=== PATIENT | female | born 1980 | race Caucasian/White ===

== ENCOUNTER 2019-04-13 10:55 | Outpatient (CLI) | payer MEDICAID, SELFPAY ==
--- NOTE | 2019-04-13 10:58 | MM_ITS ---
WS: [id number] BILATERAL DIGITAL SCREENING MAMMOGRAPHY WITH CAD CLINICAL INFORMATION: SCREENING HISTORY: Screening mammogram. No current complaints. COMPARISON: None. TECHNIQUE: Bilateral CC and MLO views. FINDINGS: The breasts are composed of heterogeneous fibroglandular density tissue, which can limit the detectio n of small underlying mass lesions. No suspicious mass, asymmetry, calcifications, or architectural d istortion. No evidence of malignancy. MM/[place] [id number] IMPRESSION: BI-RADS: 2-Benign FOLLOW UP: 1 Year Follow-up Recommend return to annual screening mammography.
== END 2019-04-13 10:56 | disposition home or self-care (01) ==
LOC: RADSHAW 10:55
PROVIDERS: Family Provider Nurse Practitioner Family; PCP Nurse Practitioner Family; Visit Provider Nurse Practitioner Family
DX: Z12.31 Encounter for screening mammogram for malignant neoplasm of breast (principal)
CPT/HCPCS: 77067

== ENCOUNTER → 2020-12-04 16:44 | Outpatient (BNVA) | payer MEDICAID, SELFPAY | PROVIDERS: Family Provider Nurse Practitioner Family; PCP Nurse Practitioner Family; Visit Provider Registered Nurse Neonatal Intensive Care | DX: M79.671 Pain in right foot (principal) | CPT/HCPCS: 73630 ==

== ENCOUNTER 2020-12-05 16:16 | Outpatient (CLI) | payer MEDICAID, SELFPAY ==
--- NOTE | 2020-12-05 | XR_ITS ---
WS: [id number] WRIST RIGHT TECHNIQUE: 3 views of the right wrist CLINICAL INFORMATION: FALL, WRIST PAIN COMPARISON: None. FINDINGS: Normal radiocarpal joint. Scaphoid is normal in appearance. No evidence of radiocarpal dislocation. D istal radius and ulna are normal in appearance. XR/XR wrist RT min 3V* [id number] IMPRESSION: Normal right wrist.
--- NOTE | 2020-12-05 | XR_ITS ---
WS: [id number] TECHNIQUE: 2 views of the right hand CLINICAL INFORMATION: FALL, WRIST PAIN COMPARISON: None. FINDINGS: Normal metacarpals. Normal MCP joint. Metacarpal heads are normal in appearance. Normal PIP and DIP j oints. No evidence of acute fracture or dislocation. Radiocarpal joint: Normal. Carpal bones: Normal. XR/XR hand RT 2V [id number] IMPRESSION: Normal right hand.
== END 2020-12-05 16:17 | disposition home or self-care (01) ==
PROVIDERS: PCP Nurse Practitioner Family; Visit Provider Nurse Practitioner Family
DX: M25.531 Pain in right wrist (principal); W19.XXXA Unspecified fall, initial encounter
CPT/HCPCS: 73110; 73120

== ENCOUNTER → 2020-12-06 14:33 | Outpatient (BNVA) | payer MEDICAID, SELFPAY | PROVIDERS: PCP Nurse Practitioner Family; Referring Provider Registered Nurse Neonatal Intensive Care; Visit Provider Podiatrist Foot & Ankle Surgery | DX: M25.571 Pain in right ankle and joints of right foot (principal) | CPT/HCPCS: 73630 ==

== ENCOUNTER 2020-12-10 13:02 | Outpatient (CLI) | payer MEDICAID, SELFPAY ==
--- NOTE | 2020-12-10 13:15 | US_ITS ---
WS: [id number] TRANSVAGINAL PELVIC ULTRASOUND HISTORY: PELVIC PERINEAL PAIN COMPARISON: None available. Uterus: 7.2 cm x 5.3 cm x 4.4 cm. Normal size anteverted uterus. scar along the anterior en docervical region. There is a very mild bulbous contour along the anterior scar site. Endometrium: 0.9 cm. Normal homogeneity. Right ovary: 2.5 cm x 2.5 cm x 1.9 cm. Normal size and vascularity, no cystic or solid masses. Severa l small follicles. Left ovary: 2.6 cm x 2.0 cm x 2.4 cm. Normal size and vascularity, no cystic or solid masses. Several small follicles. No free fluid. US/US transvaginal [id number] IMPRESSION: Endometritis. 1. No adnexal masses. Normal appearance of each ovary. 2. Very mild bulbous appearance along the scar site. This is probabl y due to normal postsurgical position. If there is any history of endometriosis this could potentially be a small endometrioma.
== END 2020-12-10 13:03 | disposition home or self-care (01) ==
LOC: US 13:05
PROVIDERS: PCP Nurse Practitioner Family; Visit Provider Nurse Practitioner Family
DX: R10.2 Pelvic and perineal pain (principal)
CPT/HCPCS: 76830

== ENCOUNTER 2020-12-16 13:56 | Outpatient (CLI) | payer MEDICAID, SELFPAY ==
--- NOTE | 2020-12-16 14:41 | CT_ITS ---
WS: [id number] CT scan of the right foot. Additional two-dimensional coronal and sagittal reconstruction was perform ed. 12/16/2020 Clinical Data: UNSPECIFIED FRACTURE OF UNSPECIFIED CALCANEUS CLOSED FRACTUR Comparison: Right foot, 12/06/2020 DLP: 733.[address] scans at [facility] use at least one of these dose optimization techniques: automated e xposure control; mA and/or kV adjustment per patient size (includes targeted exams where dose is matc hed to clinical indication); or iterative reconstruction. Findings: The tarsal bones appear intact. No calcaneal fracture is seen. The ankle mortise is unremarkable. The metatarsals and phalanges are also normal. No soft tissue abnormalities are seen. CT/CT foot RT wo con* [id number] Impression: Negative CT scan of the right foot.
== END 2020-12-16 13:57 | disposition home or self-care (01) ==
PROVIDERS: PCP Nurse Practitioner Family; Visit Provider Nurse Practitioner Family
DX: S92.001A Unspecified fracture of right calcaneus, initial encounter for closed fracture (principal); X58.XXXA Exposure to other specified factors, initial encounter
CPT/HCPCS: 73700

== ENCOUNTER 2021-11-14 07:18 | Outpatient (CLI) | payer MEDICAID, SELFPAY ==
--- NOTE | 2021-11-14 07:22 | MM_ITS ---
WS: [id number] VIEWS: MLO and CC views both breasts. 3D digital tomosynthesis is also included in this exam. Comparison made with prior exam of 03/31/2017, 10/21/2017, 04/13/2019,. Findings: Questionable new 3 mm nodular density seen in the anterior medial left breast on the cc view only. Th ere are no new findings in the right breast. No architectural distortion or suspicious calcification in either breast. Heterogeneously dense. Compression spot views of the left breast as well as region al ultrasound recommended for further workup. MM/[place] [id number] Impression: BI-RADS: 0-Incomplete: Need additional imaging evaluation FOLLOW-UP: See Report This mammogram was also analyzed by the Computer Aided Detection System R2 Imag e Cooler Room Worker.
== END 2021-11-14 07:19 | disposition home or self-care (01) ==
PROVIDERS: PCP Nurse Practitioner Family; Visit Provider Nurse Practitioner Family
DX: Z12.31 Encounter for screening mammogram for malignant neoplasm of breast (principal)
CPT/HCPCS: 77063; 77067

== ENCOUNTER 2021-12-18 11:08 | Outpatient (CLI) | payer MEDICAID, SELFPAY ==
--- NOTE | 2021-12-18 11:14 | MM_ITS ---
WS: [id number] ADDITIONAL VIEWS LEFT MAMMOGRAM WITH DIGITAL BREAST TOMOSYNTHESIS. HISTORY: ABNORMAL MAMMO COMPARISON: 11/14/2021 and 04/13/2019 Spot compression views LEFT breast in projection and true ML submitted with digital breast tomosynthe sis and SM. The 5 mm asymmetry seen on the screening mammogram corresponds to a vessel seen on end. There is no u nderlying mass seen on 2 views. MM/[place] [id number] IMPRESSION: BI-RADS: 2-Benign FOLLOW UP: 1 Year Follow-up
== END 2021-12-18 11:09 | disposition home or self-care (01) ==
PROVIDERS: PCP Nurse Practitioner Family; Visit Provider Nurse Practitioner Family
DX: N64.89 Other specified disorders of breast (principal); R92.8 Other abnormal and inconclusive findings on diagnostic imaging of breast
CPT/HCPCS: 77061

== ENCOUNTER 2023-04-01 17:39 | Emergency (ER) | payer MEDICAID, SELFPAY ==
[2023-04-01 17:57] VITALS: BP 140/88; PULSE 78; RESP 18; TEMP 36.6; O2SAT 99; BMI 25.8
[2023-04-01 18:07] VITALS: BP 127/78; PULSE 94; RESP 16; TEMP 36.8; O2SAT 96
--- NOTE | 2023-04-01 18:07 | W.ED.NAVMDI ---
HPI - Nausea/Vomiting/Diarrhea General: Chief complaint: Nausea/Vomiting/Diarrhea Stated complaint: n/v/d Time Seen by Provider: 04/01/23 18:02 Source: patient Mode of arrival: ambulatory Limitations: no limitations History of Present Illness: 42-year-old female who states that since early this morning she has been having nausea vomiting diarrhea that she states has been nonstop she had some slight abdominal cramping she denies any fevers she denies any severe pains. She denies any known sick contacts or food poisoning. Associated nausea: Yes Associated symtoms: Reports nausea; Denies chest pain, dysuria or headache(s) Review of Systems Const: Denies: fever(s) or chills Eyes: Denies: blurry vision or eye discomfort ENMT: Denies: throat pain or dental pain Card: Denies: chest pain Resp: Denies: dyspnea GI: Reports: nausea, vomiting and diarrhea; Denies: abdominal pain : Denies: dysuria Musc: Denies: neck pain or back pain Skin/Breast: Denies: rash Neuro: Denies: headache(s) PFSH ED PFSH: Social History Smoking and tobacco/nicotine status: current every day tobacco/nicotine user (2 pack a day) Physical Exam Const: COMMON NORMALS: no acute distress, patient oriented x3 and healthy appearing HENMT: COMMON NORMALS: normocephalic and atraumatic HEAD & SCALP: normocephalic and atraumatic Eye: COMMON NORMALS: Equal, round and reactive pupils present and EOMs intact bilaterally PUPIL: Yes Equal, round and reactive pupils present Neck/C-Spine: COMMON NORMALS: full ROM and supple Chest: COMMONS NORMALS: normal inspection of the chest Resp: COMMON NORMALS: normal respiratory effort, No retractions, No use of accessory muscles and clear to auscultation bilaterally AUSCULTATION: clear to auscultation bilaterally Cardio: COMMON NORMALS: regular rate, regular rhythm and No murmurs present (Cardio) RATE: regular rate RHYTHM: regular rhythm GI: COMMON NORMALS: Normal to inspection, nondistended, normoactive bowel sounds present, Soft to palpation, non-tender and no masses PALPATION: Yes Soft to palpation Extremity: COMMON NORMALS: normal to inspection and full ROM Neuro: COMMON NORMALS: patient oriented x3, moves all extremities and no focal motor deficits Psych: COMMON NORMALS: mental status grossly normal, Normal thought process present and cooperative THOUGHT PROCESS: Normal thought process present Skin: COMMON NORMALS: no rashes or lesions noted and no wounds GENERAL SKIN EXAM: no rashes or lesions noted Course Vital Signs: Vital signs: Vital Signs Temperature 98.2 F 04/01/23 18:07 Pulse Rate 87 04/01/23 20:34 Respiratory Rate 16 04/01/23 18:07 Blood Pressure 129/88 04/01/23 20:34 Pulse Oximetry 94 04/01/23 20:34 Oxygen Delivery Me thod Room Air 04/01/23 20:34 MDM - Nausea/Vomiting/Diarrhea Medical Decision Making Patient presents here with vomiting while diarrhea is likely viral in origin she is well-appearing here blood works normal she feels improved after IV fluids and Zofran I feel she is stable for discharge we will prescribe her Zofran for home she is to follow-up with PCP and return if worsening. Medical Records I reviewed the patient's medical records. Lab Data I reviewed the patient's lab results. 04/01/23 19:22 04/01/23 19:22 Laboratory Results WBC 13.30 10^3/uL (3.29-11.43) H 04/01/23 19: RBC 4.90 10^6/uL (3.85-5.65) 04/01/23 19:22 Hgb 15.00 g/dL (11.27-16.99) 04/01/23 19: Hct 42.9 % (36-47) 04/01/23 19: MCV 87.6 fl (85-98) 04/01/23 19:22 MCH 30.6 pg (27-33) 04/01/23 19: MCHC 35.0 g/dL (30-55) 04/01/23 19: RDW 13.5 % (12.1-15.1) 04/01/23 19:22 Plt Count 290 10^3/cmm (157-399) 04/01/23 19:22 MPV 9.6 fL (7.4-10.4) 04/01/23 19: Neut % (Auto) 87.0 % 04/01/23 19:22 Lymph % (Auto) 8.4 % 04/01/23 19:22 [place] % (Auto) 3.9 % 04/01/23 19:22 Eos % (Auto) 0.0 % 04/01/23 19:22 Baso % (Auto) 0.3 % 04/01/23 19:22 Neut # (Auto) 11.57 10^3/uL (1.8-7.7) H 04/01/23 19:22 Lymph # (Auto) 1.1 10^3/uL (0.8-4.8) 04/01/23 19:22 [place] # (Auto) 0.5 10^3/uL (0.2-0.9) 04/01/23 19:22 Eos # (Auto) 0.0 10^3/uL (0.0-0.8) 04/01/23 19: Baso # (Auto) 0.0 10^3/uL (0.0-0.1) 04/01/23 19:22 Nucleated RBC % (auto) 0 % 04/01/23 19: Nucleated RBCs # 0.0 /100WBC 04/01/23 19:22 Sodium 142 mmol/L (136-145) 04/01/23 19:22 Potassium 3.3 mmol/L (3.5-5.1) L 04/01/23 19:22 Chloride 104 mmol/L (98-107) 04/01/23 19:22 Carbon Dioxide 19 mmol/L (22-29) L 04/01/23 19:22 Anion Gap 22.3 (5-19) H 04/01/23 19:22 BUN 9 mg/dL (6-20) 04/01/23 19:22 Creatinine 0.6 mg/dL (0.5-0.9) 04/01/23 19:22 GFR Calculation 110.7 mL/min (90-130) 04/01/23 19:22 Glucose 125 mg/dL (65-115) H 04/01/23 19:22 Calculated Osmolality 294 mOsm/kg (285-295) 04/01/23 19:22 Calcium 8.9 mg/dL (8.5-10.5) 04/01/23 19:22 Total Bilirubin 0.3 mg/dL (0.15-1.2) 04/01/23 19:22 AST 20 U/L (0-32) 04/01/23 19:22 ALT 22 U/L (0-33) 04/01/23 19:22 Alkaline Phosphatase 67 U/L (35-105) 04/01/23 19:22 Total Protein 7.9 g/dL (6.6-8.7) 04/01/23 19:22 Albumin 4.3 g/dL (3.5-5.2) 04/01/23 19:22 Globulin 3.6 g/dL (1.3-4.6) 04/01/23 19:22 Lipase 24 U/L (13-60) 04/01/23 19:22 HCG, Qual Negative (Negative) 04/01/23 20:49 No radiology studies performed this visit Discharge Plan Discharge Patient Disposition: Home Clinical Impression: Vomiting Qualifiers: Vomiting type: unspecified Nausea presence: with nausea Qualified Code(s): R11.2 - Nausea with vomiting, unspecified Condition: Stable Prescriptions: New ondansetron 4 mg tablet,disintegrating 4 mg PO Q6H PRN (Reason: nausea and vomiting) Qty: 14 0RF No Action levothyroxine 75 mcg capsule 75 mcg PO DAILY Discharge Orders: Discharge ED (Routine); Ordered 04/01/23 Ordered By: Wellington Rae Referrals: Josee David FNP [Primary Care Provider] - 1-3 days Discharge Diet: Advance as tolerated Discharge Activity: Resume usual activity Patient Instructions: Acute Nausea and Vomiting (ED) Coding Level of Care Code ED Boiler House Mechanic for Mike Buck
--- NOTE | 2023-04-01 18:51 | PC.NURSE ---
unable to obtain IV access after 2 attempts, charge attempted. Lab unable to draw waiting for US IV access.
--- NOTE | 2023-04-01 18:52 | PC.NURSE ---
Pt refuses metoclopramide states she has an intolerance to it. notified.
[2023-04-01] MEDS: diphenhydrAMINE 50 mg/mL SDV 1mL IM (18:53)
[2023-04-01] MEDS: sodium chloride 0.9% 1,000 ML 999 ML IV (19:30)
[2023-04-01] MEDS: ondansetron 2 mg/ML SDV 2 mL 4 MG IVP (19:32)
[2023-04-01 19:38] LABS: Basophils % 0.3 %; Hematocrit 42.9 % (36-47); Lymphocytes # 1.1 10^3/uL (0.8-4.8); Lymphocytes % 8.4 %; Mean Corpuscular Hemoglobin 30.6 pg (27-33); Mean Corpuscular Volume 87.6 fl (85-98); Mean Platelet Volume 9.6 fL (7.4-10.4); Monocytes # 0.5 10^3/uL (0.2-0.9); Monocytes % 3.9 %; Neutrophils # 11.57 10^3/uL (1.8-7.7); Nucleated Red Blood Cells % 0 %; Platelet Count 290 10^3/cmm (157-399); Red Cell Distribution Width 13.5 % (12.1-15.1)
[2023-04-01 19:58] LABS: Alanine Aminotransferase 22 U/L (0-33); Albumin Level 4.3 g/dL (3.5-5.2); Alkaline Phosphatase 67 U/L (35-105); Anion Gap 22.3 (5-19); Aspartate Amino Transferase 20 U/L (0-32); Blood Urea Nitrogen 9 mg/dL (6-20); Calcium 8.9 mg/dL (8.5-10.5); Carbon Dioxide 19 mmol/L (22-29); Chloride 104 mmol/L (98-107); Globulin 3.6 g/dL (1.3-4.6); Glomerular Filtration Rate 110.7 mL/min (90-130); Glucose 125 mg/dL (65-115); Lipase 24 U/L (13-60); Osmolality Calculated 294 mOsm/kg (285-295); Potassium 3.3 mmol/L (3.5-5.1); Sodium 142 mmol/L (136-145); Total Bilirubin 0.3 mg/dL (0.15-1.2); Total Protein 7.9 g/dL (6.6-8.7)
[2023-04-01 20:34] VITALS: BP 129/88; PULSE 87; O2SAT 94
[2023-04-01 21:18] LABS: HCG Qualitative Urine. Negative (Negative)
[2023-04-01] MEDS: ondansetron 4 MG Tablet PO (21:32)
[2023-04-01 21:36] VITALS: BP 152/99; PULSE 87; O2SAT 95
[2023-04-01 21:40] LABS: Add Urine Microscopic? YES; Bilirubin Urine Neg (Negative); Blood Urine 2+ (Negative); Glucose Urine UA Norm (Normal); Ketones Urine 3+ (Negative); Leukocyte Esterase Urine Negative (Negative); Nitrate Urine Negative (Negative); Protein Urine Trace (Negative); Urine Appearance Cloudy (CLEAR); Urine Color Yellow (Yellow); Urobilinogen Urine Norm (Negative); pH Urine 5 (5-7)
[2023-04-01 21:41] LABS: Add Urine Culture? No; Amorphous Sediment Urine 4+ /hpf; Bacteria Urine TRACE /hpf; RBC Urine 0-4 /hpf (0-2); Squamous Epithelial Cell Urine 0-4 /hpf (0-5); WBC Urine 0-4 /hpf (0-5)
== END 2023-04-01 21:38 | disposition home or self-care (01) ==
PROVIDERS: Emergency Provider Emergency Medicine; PCP Nurse Practitioner Family
DX: R11.2 Nausea with vomiting, unspecified (principal); Z72.0 Tobacco use
CPT/HCPCS: 80053; 81001; 81025; 83690; 85025; 96361; 96372; 96374; 99284; J1200; J2405; J7030; Q0162

== ENCOUNTER 2023-06-16 12:01 | Emergency (ER) | payer MEDICAID, SELFPAY ==
[2023-06-16] VITALS (7 sets, daily range): BP systolic 126–161; BP diastolic 71–90; PULSE 60–76; RESP 14–18; TEMP 36.3; O2SAT 96–100; BMI 25.8
--- NOTE | 2023-06-16 12:51 | ED_ITS ---
HPI - Abdominal Pain 2 General: Chief Complaint: Abdominal Pain Stated Complaint: weakness, chills, n/v Time Seen by Provider: 06/16/23 12:43 Source: patient Mode of arrival: ambulatory Limitations: no limitations History of Present Illness: 43-year-old female who states that over the last 2 days she has been having nausea and vomiting is gotten much worse this morning. States she had multiple episodes of vomiting states she is having some abdominal cramping mainly after vomiting she had some diarrhea as well. She denies any severe abdominal pain denies any fevers Associated Symptoms: Reports nausea and vomiting; Denies chills, diarrhea, dysuria and fever(s) Review of Systems 2 Const: Denies: fever(s), chills, body aches or change in appetite ENMT: Denies: throat pain or dental pain Card: Denies: chest pain Resp: Denies: dyspnea GI: Reports: abdominal pain, nausea and vomiting; Denies: diarrhea : Denies: dysuria Musc: Denies: neck pain or back pain Skin/Breast: Denies: rash Neuro: Denies: headache(s) PFSH ED 2 PFSH: Social History Smoking and tobacco/nicotine status: current every day tobacco/nicotine user (2 pack a day) Physical Exam 2 Const: COMMON NORMALS: no acute distress, patient oriented x3 and healthy appearing HENMT: COMMON NORMALS: normocephalic and atraumatic HEAD & SCALP: n ormocephalic and atraumatic Eye: COMMON NORMALS: Equal, round and reactive pupils present and EOMs intact bilaterally PUPIL: Yes Equal, round and reactive pupils present Neck/C-Spine: COMMON NORMALS: full ROM and supple Chest: COMMONS NORMALS: normal inspection of the chest and normal palpation of entire chest wall Resp: COMMON NORMALS: normal respiratory effort, No retractions, No use of accessory muscles and clear to auscultation bilaterally AUSCULTATION: clear to auscultation bilaterally Cardio: COMMON NORMALS: regular rate, regular rhythm and No murmurs present (Cardio) RATE: regular rate RHYTHM: regular rhythm GI: COMMON NORMALS: Normal to inspection, nondistended, normoactive bowel sounds present, Soft to palpation, non-tender and no masses PALPATION: Yes Soft to palpation Extremity: COMMON NORMALS: normal to inspection and full ROM Neuro: COMMON NORMALS: patient oriented x3, moves all extremities and no focal motor deficits Psych: COMMON NORMALS: mental status grossly normal, Normal thought process present and cooperative THOUGHT PROCESS: Normal thought process present Skin: COMMON NORMALS: no rashes or lesions noted and no wounds GENERAL SKIN EXAM: no rashes or lesions noted Course 2 Vital Signs: Vital signs: Vital Signs Temperature 97.4 F L 06/16/23 12:13 Pulse Rate 71 06/16/23 15:19 Respiratory Rate 14 06/16/23 15:19 Blood Pressure 137/78 06/16/23 15:19 Pulse Oximetry 99 06/16/23 15:19 Oxygen Delivery Me thod Room Air 06/16/23 14:30 MDM - Abdominal Pain Medical Decision Making Patient presents here with vomiting that is improved here white counts normal her abdominal exam is normal no signs of acute surgical abdomen we will prescribe her Zofran for home she is follow-up with PCP and return if worsening she understands agrees to plan. Medical Records I reviewed the patient's medical records. Lab Data I reviewed the patient's lab results. 06/16/23 13:01 06/16/23 13:01 Labs/Radiology: Laboratory Results WBC 9.87 10^3/uL (3.29-11.43) 06/16/23 13:01 RBC 4.69 10^6/uL (3.85-5.65) 06/16/23 13:01 Hgb 14.30 g/dL (11.27-16.99) 06/16/23 13:01 Hct 41.7 % (36-47) 06/16/23 13:01 MCV 88.9 fl (85-98) 06/16/23 13:01 MCH 30.5 pg (27-33) 06/16/23 13:01 MCHC 34.3 g/dL (30-55) 06/16/23 13:01 RDW 14.2 % (12.1-15.1) 06/16/23 13:01 Plt Count 269 10^3/cmm (157-399) 06/16/23 13:01 MPV 9.3 fL (7.4-10.4) 06/16/23 13:01 Neut % (Auto) 82.9 % 06/16/23 13:01 Lymph % (Auto) 11.8 % 06/16/23 13:01 [place] % (Auto) 4.3 % 06/16/23 13:01 Eos % (Auto) 0.3 % 06/16/23 13:01 Baso % (Auto) 0.5 % 06/16/23 13:01 Neut # (Auto) 8.19 10^3/uL (1.8-7.7) H 06/16/23 13:01 Lymph # (Auto) 1.2 10^3/uL (0.8-4.8) 06/16/23 13:01 [place] # (Auto) 0.4 10^3/uL (0.2-0.9) 06/16/23 13:01 Eos # (Auto) 0.0 10^3/uL (0.0-0.8) 06/16/23 13:01 Baso # (Auto) 0.1 10^3/uL (0.0-0.1) 06/16/23 13:01 Nucleated RBC % (auto) 0 % 06/16/23 13:01 Nucleated RBCs # 0.0 /100WBC 06/16/23 13:01 Sodium 137 mmol/L (136-145) 06/16/23 13:01 Potassium 3.6 mmol/L (3.5-5.1) 06/16/23 13:01 Chloride 104 mmol/L (98-107) 06/16/23 13:01 Carbon Dioxide 17 mmol/L (22-29) L 06/16/23 13:01 Anion Gap 19.6 (5-19) H 06/16/23 13:01 BUN 9 mg/dL (6-20) 06/16/23 13:01 Creatinine 0.6 mg/dL (0.5-0.9) 06/16/23 13:01 GFR Calculation 110.2 mL/min (90-130) 06/16/23 13:01 Glucose 141 mg/dL (65-115) H 06/16/23 13:01 Calculated Osmolality 285 mOsm/kg (285-295) 06/16/23 13:01 Calcium 8.9 mg/dL (8.5-10.5) 06/16/23 13:01 Total Bilirubin 0.3 mg/dL (0.15-1.2) 06/16/23 13:01 AST 22 U/L (0-32) 06/16/23 13:01 ALT 24 U/L (0-33) 06/16/23 13:01 Alkaline Phosphatase 69 U/L (35-105) 06/16/23 13:01 Total Protein 7.3 g/dL (6.6-8.7) 06/16/23 13:01 Albumin 4.2 g/dL (3.5-5.2) 06/16/23 13:01 Globulin 3.1 g/dL (1.3-4.6) 06/16/23 13:01 Lipase 35 U/L (13-60) 06/16/23 13:01 HCG, Qual Negative (Negative) 06/16/23 13:01 No radiology studies performed this visit Discharge Plan Discharge Patient Disposition: Home Clinical Impression: Vomiting Condition: Stable Prescriptions: New ondansetron 4 mg tablet,disintegrating 4 mg PO Q6H PRN (Reason: nausea and vomiting) Qty: 14 0RF No Action levothyroxine 100 mcg tablet 100 mcg PO DAILY escitalopram oxalate 10 mg tablet 10 mg PO DAILY Discharge Orders: Discharge ED (Routine); Ordered 06/16/23 Ordered By: Wellington Rae Referrals: David,SWAPNIL Tripp [Primary Care Provider] - 4-7 days Discharge Diet: Advance as tolerated Discharge Activity: Resume usual activity Patient Instructions: Acute Nausea and Vomiting (ED) Coding Level of Care Code ED Computer Numerical Control Operator for Mike Buck
[2023-06-16 13:09] LABS: Basophils # 0.1 10^3/uL (0.0-0.1); Basophils % 0.5 %; Eosinophils % 0.3 %; Hematocrit 41.7 % (36-47); Lymphocytes # 1.2 10^3/uL (0.8-4.8); Lymphocytes % 11.8 %; Mean Corpuscular HGB Conc 34.3 g/dL (30-55); Mean Corpuscular Hemoglobin 30.5 pg (27-33); Mean Corpuscular Volume 88.9 fl (85-98); Mean Platelet Volume 9.3 fL (7.4-10.4); Monocytes # 0.4 10^3/uL (0.2-0.9); Monocytes % 4.3 %; Neutrophils # 8.19 10^3/uL (1.8-7.7); Neutrophils % 82.9 %; Nucleated Red Blood Cells % 0 %; Platelet Count 269 10^3/cmm (157-399); Red Blood Count 4.69 10^6/uL (3.85-5.65); Red Cell Distribution Width 14.2 % (12.1-15.1); White Blood Count 9.87 10^3/uL (3.29-11.43)
[2023-06-16] MEDS: sodium chloride 0.9% 1,000 ML 999 ML IV ×2 (13:29→14:09)
[2023-06-16] MEDS: diphenhydrAMINE 50 mg/mL SDV 1mL IVP (13:30)
[2023-06-16] MEDS: metoclopramide 5 mg/mL SDV 2 mL 10 MG IVP (13:30)
[2023-06-16 13:33] LABS: Alanine Aminotransferase 24 U/L (0-33); Albumin Level 4.2 g/dL (3.5-5.2); Alkaline Phosphatase 69 U/L (35-105); Anion Gap 19.6 (5-19); Aspartate Amino Transferase 22 U/L (0-32); Blood Urea Nitrogen 9 mg/dL (6-20); Calcium 8.9 mg/dL (8.5-10.5); Carbon Dioxide 17 mmol/L (22-29); Chloride 104 mmol/L (98-107); Creatinine Clr Calc Pharmacy 130.3102; Globulin 3.1 g/dL (1.3-4.6); Glomerular Filtration Rate 110.2 mL/min (90-130); Glucose 141 mg/dL (65-115); Lipase 35 U/L (13-60); Osmolality Calculated 285 mOsm/kg (285-295); Potassium 3.6 mmol/L (3.5-5.1); Sodium 137 mmol/L (136-145); Total Bilirubin 0.3 mg/dL (0.15-1.2); Total Protein 7.3 g/dL (6.6-8.7)
--- NOTE | 2023-06-16 14:02 | PC.NURSE ---
Pt vomiting, Dr Rae aware.
[2023-06-16] MEDS: haloperidol inj 5 mg/mL INJ 1 mL IVP (14:04)
[2023-06-16] MEDS: morphine 4 mg/mL SDV 1 mL IVP (14:04)
[2023-06-16 14:12] LABS: HCG, Serum Qual Negative (Negative)
== END 2023-06-16 15:19 | disposition home or self-care (01) ==
PROVIDERS: Emergency Provider Emergency Medicine; PCP Nurse Practitioner Family
DX: R11.11 Vomiting without nausea (principal); F17.210 Nicotine dependence, cigarettes, uncomplicated
CPT/HCPCS: 36415; 80053; 83690; 84703; 85025; 96361; 96374; 96375; 99284; J1200; J1630; J2270; J2765; J7030

== ENCOUNTER 2023-07-19 14:57 | Emergency (ER) | payer MEDICAID, SELFPAY ==
[2023-07-19 15:05] VITALS: BP 140/94; PULSE 113; RESP 20; TEMP 36.8; O2SAT 96; BMI 25.0
--- NOTE | 2023-07-19 15:30 | ED_ITS ---
HPI - Nausea/Vomiting/Diarrhea 2 General: Chief complaint: Nausea/Vomiting/Diarrhea Stated complaint: weakness, N/V Time Seen by Provider: 07/19/23 15:25 Source: patient Mode of arrival: ambulatory Limitations: no limitations History of Present Illness: 43-year-old female states she been havin g severe vomiting throughout the day. States started this morning and then vomited multiple times and feels like she is dehydrated. She had some abdominal cramping but denies any severe pain denies any fevers denies any worsening proving factors. Associated nausea: Yes Associated symtoms: Reports nausea; Denies chest pain, dysuria or headache(s) Review of Systems 2 Const: Denies: fever(s), chills or body aches Eyes: Denies: blurry vision or eye discomfort ENMT: Denies: throat pain or dental pain Card: Denies: chest pain Resp: Denies: dyspnea GI: Reports: nausea and vomiting; Denies: abdominal pain or diarrhea : Denies: dysuria Musc: Denies: neck pain or back pain Skin/Breast: Denies: rash Neuro: Denies: headache(s) PFSH ED 2 PFSH: Social History Smoking and tobacco/nicotine status: current every day tobacco/nicotine user (2 pack a day) Physical Exam 2 Const: COMMON NORMALS: no acute distress, patient oriented x3 and healthy appearing HENMT: COMMON NORMALS: normocephalic and atraumatic HEAD & SCALP: n ormocephalic and atraumatic Eye: COMMON NORMALS: conjunctivae normal CONJUNCTIVA: Yes conjunctivae normal Neck/C-Spine: COMMON NORMALS: full ROM and supple Chest: COMMONS NORMALS: normal inspection of the chest Resp: COMMON NORMALS: normal respiratory effort Cardio: COMMON NORMALS: regular rate, regular rhythm and No murmurs present (Cardio) RATE: regular rate RHYTHM: regular rhythm GI: COMMON NORMALS: Normal to inspection, nondistended, normoactive bowel sounds present, Soft to palpation, non-tender and no masses PALPATION: Yes Soft to palpation Extremity: COMMON NORMALS: normal to inspection and full ROM Neuro: COMMON NORMALS: patient oriented x3, moves all extremities and no focal motor deficits Psych: COMMON NORMALS: mental status grossly normal, Normal thought process present and cooperative THOUGHT PROCESS: Normal thought process present Skin: COMMON NORMALS: no rashes or lesions noted and no wounds GENERAL SKIN EXAM: no rashes or lesions noted Course 2 Vital Signs: Vital signs: Vital Signs Temperature 98.2 F 07/19/23 15:05 Pulse Rate 65 07/19/23 17:19 Respiratory Rate 18 07/19/23 17:19 Blood Pressure 140/94 07/19/23 15:05 Pulse Oximetry 100 07/19/23 17:19 Oxygen Delivery Me thod Room Air 07/19/23 17:19 MDM - Nausea/Vomiting/Diarrhea Medical Decision Making Patient presents here with nausea vomiting she is much improved here she feels improved after fluids blood works normal abdominal exam is benign she stable for discharge we will place her on Zofran she is follow-up with PCP and return if worsening. Medical Records I reviewed the patient's medical records. Lab Data I reviewed the patient's lab results. 07/19/23 16:10 07/19/23 16:10 Laboratory Results WBC 11.18 10^3/uL (3.29-11.43) 07/19/23 16:10 RBC 4.96 10^6/uL (3.85-5.65) 07/19/23 16:10 Hgb 15.00 g/dL (11.27-16.99) 07/19/23 16:10 Hct 43.7 % (36-47) 07/19/23 16:10 MCV 88.1 fl (85-98) 07/19/23 16:10 MCH 30.2 pg (27-33) 07/19/23 16:10 MCHC 34.3 g/dL (30-55) 07/19/23 16:10 RDW 14.5 % (12.1-15.1) 07/19/23 16:10 Plt Count 378 10^3/cmm (157-399) 07/19/23 16:10 MPV 9.2 fL (7.4-10.4) 07/19/23 16:10 Neut % (Auto) 77.2 % 07/19/23 16:10 Lymph % (Auto) 16.2 % 07/19/23 16:10 [place] % (Auto) 5.4 % 07/19/23 16:10 Eos % (Auto) 0.4 % 07/19/23 16:10 Baso % (Auto) 0.5 % 07/19/23 16:10 Neut # (Auto) 8.64 10^3/uL (1.8-7.7) H 07/19/23 16:10 Lymph # (Auto) 1.8 10^3/uL (0.8-4.8) 07/19/23 16:10 [place] # (Auto) 0.6 10^3/uL (0.2-0.9) 07/19/23 16:10 Eos # (Auto) 0.0 10^3/uL (0.0-0.8) 07/19/23 16:10 Baso # (Auto) 0.1 10^3/uL (0.0-0.1) 07/19/23 16:10 Nucleated RBC % (auto) 0 % 07/19/23 16:10 Nucleated RBCs # 0.0 /100WBC 07/19/23 16:10 Sodium 142 mmol/L (136-145) 07/19/23 16:10 Potassium 3.8 mmol/L (3.5-5.1) 07/19/23 16:10 Chloride 104 mmol/L (98-107) 07/19/23 16:10 Carbon Dioxide 18 mmol/L (22-29) L 07/19/23 16:10 Anion Gap 23.8 (5-19) H 07/19/23 16:10 BUN 7 mg/dL (6-20) 07/19/23 16:10 Creatinine 0.6 mg/dL (0.5-0.9) 07/19/23 16:10 GFR Calculation 110.2 mL/min (90-130) 07/19/23 16:10 Glucose 105 mg/dL (65-115) 07/19/23 16:10 Calculated Osmolality 292 mOsm/kg (285-295) 07/19/23 16:10 Calcium 9.2 mg/dL (8.5-10.5) 07/19/23 16:10 Total Bilirubin 0.2 mg/dL (0.15-1.2) 07/19/23 16:10 AST 19 U/L (0-32) 07/19/23 16:10 ALT 19 U/L (0-33) 07/19/23 16:10 Alkaline Phosphatase 72 U/L (35-105) 07/19/23 16:10 Total Protein 7.9 g/dL (6.6-8.7) 07/19/23 16:10 Albumin 4.4 g/dL (3.5-5.2) 07/19/23 16:10 Globulin 3.5 g/dL (1.3-4.6) 07/19/23 16:10 Lipase 40 U/L (13-60) 07/19/23 16:10 HCG, Qual Negative (Negative) 07/19/23 16:10 No radiology studies performed this visit Discharge Plan Discharge Patient Disposition: Home Clinical Impression: Vomiting Condition: Stable Prescriptions: New ondansetron 4 mg tablet,disintegrating 4 mg PO Q6H PRN (Reason: nausea and vomiting) Qty: 14 0RF No Action levothyroxine 100 mcg tablet 100 mcg PO DAILY escitalopram oxalate 10 mg tablet 10 mg PO DAILY ondansetron 4 mg tablet,disintegrating 4 mg PO Q6H PRN (Reason: nausea and vomiting) Qty: 14 0RF Discharge Orders: Discharge ED (Routine); Ordered 07/19/23 Ordered By: eWllington Rae Referrals: Frankie,ASYA TrippP [Primary Care Provider] - 1-3 days Discharge Diet: Advance as tolerated Discharge Activity: Resume usual activity Patient Instructions: Acute Nausea and Vomiting (ED) Coding Level of Care Code ED Steam Meter Reader for Mike Buck
[2023-07-19] MEDS: diphenhydrAMINE 50 mg/mL SDV 1mL IVP (16:24)
[2023-07-19] MEDS: ondansetron 2 mg/ML SDV 2 mL 4 MG IVP (16:24)
[2023-07-19] MEDS: sodium chloride 0.9% 1,000 ML 999 ML IV ×2 (16:25→17:18)
[2023-07-19 16:27] LABS: Basophils # 0.1 10^3/uL (0.0-0.1); Basophils % 0.5 %; Eosinophils % 0.4 %; Hematocrit 43.7 % (36-47); Lymphocytes # 1.8 10^3/uL (0.8-4.8); Lymphocytes % 16.2 %; Mean Corpuscular HGB Conc 34.3 g/dL (30-55); Mean Corpuscular Hemoglobin 30.2 pg (27-33); Mean Corpuscular Volume 88.1 fl (85-98); Mean Platelet Volume 9.2 fL (7.4-10.4); Monocytes # 0.6 10^3/uL (0.2-0.9); Monocytes % 5.4 %; Neutrophils # 8.64 10^3/uL (1.8-7.7); Neutrophils % 77.2 %; Nucleated Red Blood Cells % 0 %; Platelet Count 378 10^3/cmm (157-399); Red Blood Count 4.96 10^6/uL (3.85-5.65); Red Cell Distribution Width 14.5 % (12.1-15.1); White Blood Count 11.18 10^3/uL (3.29-11.43)
[2023-07-19 16:29] VITALS: PULSE 69; RESP 18; O2SAT 100
[2023-07-19 16:51] LABS: Alanine Aminotransferase 19 U/L (0-33); Albumin Level 4.4 g/dL (3.5-5.2); Alkaline Phosphatase 72 U/L (35-105); Aspartate Amino Transferase 19 U/L (0-32); Blood Urea Nitrogen 7 mg/dL (6-20); Calcium 9.2 mg/dL (8.5-10.5); Carbon Dioxide 18 mmol/L (22-29); Chloride 104 mmol/L (98-107); Globulin 3.5 g/dL (1.3-4.6); Glomerular Filtration Rate 110.2 mL/min (90-130); Glucose 105 mg/dL (65-115); HCG, Serum Qual Negative (Negative); Lipase 40 U/L (13-60); Osmolality Calculated 292 mOsm/kg (285-295); Sodium 142 mmol/L (136-145); Total Bilirubin 0.2 mg/dL (0.15-1.2); Total Protein 7.9 g/dL (6.6-8.7)
[2023-07-19 16:55] LABS: Anion Gap 23.8 (5-19); Potassium 3.8 mmol/L (3.5-5.1)
[2023-07-19] MEDS: haloperidol inj 5 mg/mL INJ 1 mL IVP (17:17)
[2023-07-19 17:19] VITALS: PULSE 65; RESP 18; O2SAT 100
== END 2023-07-19 18:36 | disposition home or self-care (01) ==
PROVIDERS: Emergency Provider Emergency Medicine; PCP Nurse Practitioner Family
DX: R11.11 Vomiting without nausea (principal); F17.210 Nicotine dependence, cigarettes, uncomplicated
CPT/HCPCS: 80053; 83690; 84703; 85025; 96361; 96374; 96375; 99284; J1200; J1630; J2405; J7030

== ENCOUNTER 2023-09-18 15:48 | Emergency (ER) | payer MEDICAID, SELFPAY ==
--- NOTE | 2023-09-18 15:50 | XRR_ITS ---
PROCEDURE INFORMATION: Exam: XR Right Knee Exam date and time: 09/18/2023 4:04 PM Age: 43 years old Clinical indication: Injury or trauma; Fall; Other: RT knee pain TECHNIQUE: Imaging protocol: Radiologic exam of the right knee. Views: 3 views. COMPARISON: CT foot RT wo con* [id number] 12/16/2020 2:49 PM FINDINGS: Bones/joints: Normal. Soft tissues: Normal. XR/XR knee RT 3V* [id number] IMPRESSION: No acute findings.
[2023-09-18 15:54] VITALS: BP 115/81; PULSE 110; RESP 18; TEMP 36.8; O2SAT 96; BMI 25.0
--- NOTE | 2023-09-18 15:56 | W.ED.EXTPRO ---
HPI - Extremity Problem General: Chief complaint: Extremity Injury, Lower Stated complaint: Right knee injury Time Seen by Provider: 09/18/23 15:56 History of Present Illness: This patient is a 43 year old presenting with right knee pain. She reports that she fell last night at about 9 pm. She doesn't know how she landed but she has had severe knee pain and can't put weight on it. She also fell on the same knee a few weeks ago - but that time just scraped it up and had no ongoing pain or trouble walking. Today she has hardly been able to get around without screaming. She has not taken anything for the pain. No swelling. No prior knee injuries or knee surgery. No other complaints. [facility] ED PFSH: Social History Smoking and tobacco/nicotine status: current every day tobacco/nicotine user (2 pack a day) Physical Exam Const: COMMON NORMALS: no acute distress, patient oriented x3, no limitations and alert GENERAL APPEARANCE: cooperative and comfortable Neck/C-Spine: COMMON NORMALS: supple, no meningeal signs and no JVD Resp: COMMON NORMALS: normal respiratory effort, No use of accessory muscles and clear to auscultation bilaterally AUSCULTATION: clear to auscultation bilaterally Cardio: COMMON NORMALS: no JVD, regular rate, regular rhythm and No murmurs present (Cardio) RATE: regular rate RHYTHM: regular rhythm Back/Pelvis: COMMON NORMALS: thoracic and lumbar spine normal to inspection Extremity: RIGHT LOWER EXTREMITY: Yes knee joint (too painful to attempt stress testing) Right knee: Yes palpation (tenderness over the medial joint line and distal femur. Minimal effusion) OTHER: abrasions to the anterior knee and proximal tibia area - consistent with an injury a few weeks ago Neuro: COMMON NORMALS: patient oriented x3, moves all extremities, no focal motor deficits and no sensory deficits noted SENSORIUM/ORIENTATION: Yes alert MENINGEAL SIGNS: Yes no meningeal signs Psych: COMMON NORMALS: mental status grossly normal, cooperative and normal affect Skin: COMMON NORMALS: no rashes or lesions noted and turgor normal GENERAL SKIN EXAM: no rashes or lesions noted and turgor normal Course Vital Signs: Vital signs: Vital Signs Temperature 98.3 F 09/18/23 15:57 Pulse Rate 78 09/18/23 16:57 Respiratory Rate 18 09/18/23 16:57 Blood Pressure 111/94 09/18/23 16:57 Pulse Oximetry 95 09/18/23 16:57 Oxygen Delivery Me thod Room Air 09/18/23 16:57 MDM - Extremity (Nontraumatic) Medical Decision Making Bony tenderness on exam - but normal xray. No significant effusion to suggest major derangement. Knee immobilizer greatly improved her pain. Outpatient follow up if not improving in about a week. Lab Data Radiology Impressions Knee X-Ray 09/18/23 15:50 IMPRESSION: No acute findings. All radiology interpretation(s) finalized by discharge Discharge Plan Discharge Patient Disposition: Home Clinical Impression: Acute knee pain Qualifiers: Laterality: right Qualified Code(s): M25.561 - Pain in right knee Fall Qualifiers: Encounter type: initial encounter Qualified Code(s): W19.XXXA - Unspecified fall, initial encounter Condition: Stable Prescriptions: No Action levothyroxine 100 mcg tablet 100 mcg PO DAILY escitalopram oxalate 10 mg tablet 10 mg PO DAILY ondansetron 4 mg tablet,disintegrating 4 mg PO Q6H PRN (Reason: nausea and vomiting) Qty: 14 0RF ondansetron 4 mg tablet,disintegrating 4 mg PO Q6H PRN (Reason: nausea and vomiting) Qty: 14 0RF Discharge Orders: Discharge ED (Routine); Ordered 09/18/23 Ordered By: So Henley Referrals: David,Josee, MEDICAL CLAIMS REPRESENTATIVE [Primary Care Provider] - Patient Instructions: Opioid Safety, Pain Management Activity Restrictions/Additional Instructions: Use ibuprofen - 600 mg every 6 hours as needed for pain. You can also take acetaminophen - 1000 mg every 6 hours. Apply ice packs for 20 minutes every hour and avoid weight bearing. Follow up with your PCP for further evaluation in about a week. Coding Level of Care Code ED Electronic Security Technician for Mike Buck
[2023-09-18 15:57] VITALS: BP 115/81; PULSE 110; RESP 18; TEMP 36.8; O2SAT 96
[2023-09-18] MEDS: ibuprofen 600 mg Tablet PO (16:42)
[2023-09-18] MEDS: acetaminophen 500 mg Tablet 1000 MG PO (16:42)
[2023-09-18 16:57] VITALS: BP 111/94; PULSE 78; RESP 18; O2SAT 95
== END 2023-09-18 17:21 | disposition home or self-care (01) ==
PROVIDERS: Emergency Provider Emergency Medicine; PCP Nurse Practitioner Family
DX: M25.561 Pain in right knee (principal); F17.210 Nicotine dependence, cigarettes, uncomplicated; W19.XXXA Unspecified fall, initial encounter
CPT/HCPCS: 29530; 73562; 99283

== ENCOUNTER 2023-10-22 06:13 | Observation (INO) | payer MEDICAID, SELFPAY ==
[2023-10-22] VITALS (11 sets, daily range): BP systolic 88–139; BP diastolic 50–88; PULSE 57–91; RESP 16–18; TEMP 36.4–36.8; O2SAT 94–99; BMI 25.0
--- NOTE | 2023-10-22 06:26 | ED_ITS ---
HPI - Nausea/Vomiting/Diarrhea 2 General: Chief complaint: Nausea/Vomiting/Diarrhea Stated complaint: n,v abd pain x3 days Time Seen by Provider: 10/22/23 06:24 History of Present Illness: 43-year-old female presents emergency ro om with persistent nausea vomiting for the last 3 days mild epigastric discomfort. She denies any hematochezia melena hematemesis or coffee-ground emesis states she has not had any bowel movements but has had quite a bit of vomiting. No dysuria urgency or frequency. No fever sweats or chills. She has tried a previous prescription for ondansetron which has not provided much relief. Previous surgeries include cholecystectomy and section x 2 Associated nausea: Yes Associated symtoms: Reports nausea; Denies chest pain or dysuria Review of Systems 2 Const: Denies: fever(s) or chills Card: Denies: chest pain Resp: Denies: dyspnea GI: Reports: abdominal pain, nausea and vomiting : Denies: dysuria, urinary frequency or urinary urgency Musc: Denies: neck pain or back pain Skin/Breast: Denies: rash PFSH ED 2 PFSH: Social History Smoking and tobacco/nicotine status: unknown if used tobacco/nicotine Physical Exam 2 Const: GENERAL APPEARANCE: cooperative ORIENTATION/CONSCIOUSNESS: Yes awake, Yes oriented to person, Yes oriented to place and Yes oriented to time HENMT: COMMON NORMALS: normocephalic, atraumatic and hearing grossly normal bilaterally HEAD & SCALP: normocephalic and atraumatic Resp: COMMON NORMALS: normal respiratory effort, No retractions, No use of accessory muscles and clear to auscultation bilaterally AUSCULTATION: clear to auscultation bilaterally Cardio: COMMON NORMALS: regular rate, regular rhythm and No murmurs present (Cardio) RATE: regular rate RHYTHM: regular rhythm GI: COMMON NORMALS: No hepatosplenomegaly present AUSCULTATION: Yes normoactive bowel sounds PALPATION: Yes Tenderness to palpation present (GI) (Mild generalized nonspecific), No Guarding due to palpation present (GI) and Yes No hepatosplenomegaly present Extremity: COMMON NORMALS: normal to inspection, capillary refill normal, no clubbing, cyanosis or edema, no calf tenderness and no pedal edema Neuro: SENSORIUM/ORIENTATION: Yes oriented to person, Yes oriented to place and Yes oriented to time Skin: COMMON NORMALS: no rashes or lesions noted GENERAL SKIN EXAM: no rashes or lesions noted Course 2 Vital Signs: Vital signs: Vital Signs Temperature 98.0 F 10/22/23 06:14 Pulse Rate 84 10/22/23 08:30 Respiratory Rate 18 10/22/23 07:50 Blood Pressure 121/80 10/22/23 08:30 Pulse Oximetry 98 10/22/23 08:30 MDM - Nausea/Vomiting/Diarrhea Medical Decision Making Patient was used marijuana regularly think there is some component of hyperemesis cannabinoid syndrome. Additionally CT showed colitis. We did give some Cipro and Flagyl for that. She did improvement with Haldol and Ativan. She has pretty significant hypokalemia and mild hypomagnesemia will supplement both as also an anion gap acidosis from prolonged nausea and vomiting. Will place her in observation discussed with hospitalist orders written Lab Data 10/22/23 06:56 10/22/23 06:56 Radiology Impressions Abdomen/Pelvis CT 10/22/23 07:35 IMPRESSION: 1. Findings of which can be seen in mild colitis in the correct clinical setting. 2. Otherwise, incidental findings as above. Laboratory Results WBC 10.47 10^3/uL (3.29-11.43) 10/22/23 06:56 RBC 5.13 10^6/uL (3.85-5.65) 10/22/23 06:56 Hgb 15.90 g/dL (11.27-16.99) 10/22/23 06:56 Hct 45.4 % (36-47) 10/22/23 06:56 MCV 88.5 fl (85-98) 10/22/23 06:56 MCH 31.0 pg (27-33) 10/22/23 06:56 MCHC 35.0 g/dL (30-55) 10/22/23 06:56 RDW 13.2 % (12.1-15.1) 10/22/23 06:56 Plt Count 279 10^3/cmm (157-399) 10/22/23 06:56 MPV 9.5 fL (7.4-10.4) 10/22/23 06:56 Neut % (Auto) 68.6 % 10/22/23 06:56 Lymph % (Auto) 21.8 % 10/22/23 06:56 [place] % (Auto) 8.1 % 10/22/23 06:56 Eos % (Auto) 0.6 % 10/22/23 06:56 Baso % (Auto) 0.5 % 10/22/23 06:56 Neut # (Auto) 7.19 10^3/uL (1.8-7.7) 10/22/23 06:56 Lymph # (Auto) 2.3 10^3/uL (0.8-4.8) 10/22/23 06:56 [place] # (Auto) 0.9 10^3/uL (0.2-0.9) 10/22/23 06:56 Eos # (Auto) 0.1 10^3/uL (0.0-0.8) 10/22/23 06:56 Baso # (Auto) 0.1 10^3/uL (0.0-0.1) 10/22/23 06:56 Nucleated RBC % (auto) 0 % 10/22/23 06:56 Nucleated RBCs # 0.0 /100WBC 10/22/23 06:56 Sodium 133 mmol/L (136-145) L 10/22/23 06:56 Potassium 2.6 mmol/L (3.5-5.1) L* 10/22/23 06:56 Chloride 90 mmol/L (98-107) L 10/22/23 06:56 Carbon Dioxide 21 mmol/L (22-29) L 10/22/23 06:56 Anion Gap 24.6 (5-19) H 10/22/23 06:56 BUN 14 mg/dL (6-20) 10/22/23 06:56 Creatinine 0.7 mg/dL (0.5-0.9) 10/22/23 06:56 GFR Calculation 92.2 mL/min (90-130) 10/22/23 06:56 Glucose 118 mg/dL (65-115) H 10/22/23 06:56 Calculated Osmolality 278 mOsm/kg (285-295) L 10/22/23 06:56 Calcium 9.4 mg/dL (8.5-10.5) 10/22/23 06:56 Magnesium 1.6 mg/dL (1.7-2.3) L 10/22/23 06:56 Total Bilirubin 0.8 mg/dL (0.15-1.2) 10/22/23 06:56 AST 37 U/L (0-32) H 10/22/23 06:56 ALT 33 U/L (0-33) 10/22/23 06:56 Alkaline Phosphatase 73 U/L (35-105) 10/22/23 06:56 Total Protein 7.9 g/dL (6.6-8.7) 10/22/23 06:56 Albumin 4.5 g/dL (3.5-5.2) 10/22/23 06:56 Globulin 3.4 g/dL (1.3-4.6) 10/22/23 06:56 Lipase 30 U/L (13-60) 10/22/23 06:56 HCG, Qual Negative (Negative) 10/22/23 06:56 Urine Color Yellow (Yellow) 10/22/23 08:12 Urine Appearance Clear (CLEAR) 10/22/23 08:12 Urine pH 7.5 (5-7) 10/22/23 08:12 Ur Specific [place] 1.089 (1.005-1.030) H 10/22/23 08:12 Urine Protein Trace (Negative) A 10/22/23 08:12 Urine Glucose (UA) Negative (Normal) 10/22/23 08:12 Urine Ketones 1+ (Negative) H 10/22/23 08:12 Urine Blood Negative (Negative) 10/22/23 08:12 Urine Nitrate Negative (Negative) 10/22/23 08:12 Urine Bilirubin Negative (Negative) 10/22/23 08:12 Urine Urobilinogen 1.0 mg/dL (Negative) 10/22/23 08:12 Ur Leukocyte Esterase Negative (Negative) 10/22/23 08:12 Urine RBC 0-2 /hpf (0-2) 10/22/23 08:12 Urine WBC 6-10 /hpf (0-5) 10/22/23 08:12 Ur Squamous Epith Cells 11-20 /hpf (0-5) 10/22/23 08:12 Amorphous Sediment Not Reportable 10/22/23 08:12 Urine Bacteria Trace /hpf (NONE) 10/22/23 08:12 Hyaline Casts 0-4 /lpf H 10/22/23 08:12 All radiology interpretation(s) finalized by discharge Discharge Plan Discharge Patient Disposition: Placed in Observation Clinical Impression: Cannabinoid hyperemesis syndrome, Acute hypokalemia, Hypomagnesemia Coding Level of Care Code ED Engineering Department Chair for Mike Buck
[2023-10-22 07:14] LABS: Basophils # 0.1 10^3/uL (0.0-0.1); Basophils % 0.5 %; Eosinophils # 0.1 10^3/uL (0.0-0.8); Eosinophils % 0.6 %; Hematocrit 45.4 % (36-47); Lymphocytes # 2.3 10^3/uL (0.8-4.8); Lymphocytes % 21.8 %; Mean Corpuscular Volume 88.5 fl (85-98); Mean Platelet Volume 9.5 fL (7.4-10.4); Monocytes # 0.9 10^3/uL (0.2-0.9); Monocytes % 8.1 %; Neutrophils # 7.19 10^3/uL (1.8-7.7); Neutrophils % 68.6 %; Nucleated Red Blood Cells % 0 %; Platelet Count 279 10^3/cmm (157-399); Red Blood Count 5.13 10^6/uL (3.85-5.65); Red Cell Distribution Width 13.2 % (12.1-15.1); White Blood Count 10.47 10^3/uL (3.29-11.43)
[2023-10-22 07:23] LABS: HCG, Serum Qual Negative (Negative)
[2023-10-22 07:32] LABS: Alanine Aminotransferase 33 U/L (0-33); Albumin Level 4.5 g/dL (3.5-5.2); Alkaline Phosphatase 73 U/L (35-105); Anion Gap 24.6 (5-19); Aspartate Amino Transferase 37 U/L (0-32); Blood Urea Nitrogen 14 mg/dL (6-20); Calcium 9.4 mg/dL (8.5-10.5); Carbon Dioxide 21 mmol/L (22-29); Chloride 90 mmol/L (98-107); Creatinine Clr Calc Pharmacy 110.1797; Globulin 3.4 g/dL (1.3-4.6); Glomerular Filtration Rate 92.2 mL/min (90-130); Glucose 118 mg/dL (65-115); Lipase 30 U/L (13-60); Osmolality Calculated 278 mOsm/kg (285-295); Sodium 133 mmol/L (136-145); Total Bilirubin 0.8 mg/dL (0.15-1.2); Total Protein 7.9 g/dL (6.6-8.7)
[2023-10-22 07:33] LABS: Potassium 2.6 mmol/L (3.5-5.1)
[2023-10-22] MEDS: haloperidol inj 5 mg/mL INJ 1 mL 2.5 MG IVP (07:33)
--- NOTE | 2023-10-22 07:35 | CTR_ITS ---
PROCEDURE INFORMATION: Exam: CT Abdomen And Pelvis With Contrast Exam date and time: 10/22/2023 7:42 AM Age: 43 years old Clinical indication: Nausea and vomiting; Prior surgery; Surgery date: 6+ months; Surgery type: Gb; Additional info: Abd pain/n/v TECHNIQUE: Imaging protocol: Computed tomography of the abdomen and pelvis with contrast. Radiation optimization: All CT scans at this facility use at least one of these dose optimization techniques: automated exposure control; mA and/or kV adjustment per patient size (includes targeted exams where dose is matched to clinical indication); or iterative reconstruction. Contrast material: OMNI 350; Contrast volume: 100 ml; Contrast route: INTRAVENOUS (IV); COMPARISON: CT abdomen pelvis w con* [id number] 04/06/2017 2:04 PM RADIATION DOSE METRICS: Total DLP (mGy-cm): 456.78 FINDINGS: Lungs: Lung bases are clear as visualized. Heart: Base of heart is unremarkable as visualized. Liver: Perhaps mild diffuse hepatic steatosis. Gallbladder and biliary ducts: Status post cholecystectomy. Pancreas: Normal. No ductal dilation. Spleen: Multiple calcified splenic granulomas. Adrenal glands: Normal. No mass. Kidneys and ureters: Normal. No hydronephrosis. Stomach and bowel: A few scattered colonic diverticula are present without evidence of diverticulitis. Short-segment focus of collapsed large bowel at the hepatic flexure is noted with some mild prominence of haustral folds without significant surrounding inflammatory change. No obstruction. Appendix: No evidence of appendicitis. Intraperitoneal space: Unremarkable. No free air. No significant fluid collection. Vasculature: Multiple calcified pelvic phleboliths. Lymph nodes: Unremarkable. No enlarged lymph nodes. Urinary bladder: Unremarkable as visualized. Reproductive: Unremarkable as visualized. Bones/joints: Mild scattered degenerative change of the visualized osseous structures. Soft tissues: Unremarkable. CT/CT abdomen pelvis w con* [id number] IMPRESSION: 1. Findings of which can be seen in mild colitis in the correct clinical setting. 2. Otherwise, incidental findings as above.
[2023-10-22] MEDS: sodium chloride 0.9% 1,000 ML 999 ML IV ×2 (07:37→08:52)
[2023-10-22] MEDS: iohexol 350 mg/mL 500 mL Btl (per mL) IV (07:46)
[2023-10-22 08:00] LABS: Magnesium 1.6 mg/dL (1.7-2.3)
[2023-10-22] MEDS: SODIUM CHLORIDE 0.9% IV ×2 (08:14→13:38)
[2023-10-22] MEDS: POTASSIUM PHOSPHATE IV ×2 (08:14→13:38)
--- NOTE | 2023-10-22 08:16 | PC.NURSE ---
pt placed on cardiac specialist.
[2023-10-22 08:20] LABS: Charge for UA Resulting for Rev
[2023-10-22 08:24] LABS: Bilirubin Urine Negative (Negative); Blood Urine Negative (Negative); Glucose Urine UA Negative (Normal); Ketones Urine 1+ (Negative); Leukocyte Esterase Urine Negative (Negative); Nitrate Urine Negative (Negative); Protein Urine Trace (Negative); Urine Appearance Clear (CLEAR); Urine Color Yellow (Yellow); pH Urine 7.5 (5-7)
[2023-10-22 08:29] LABS: Bacteria Urine Trace /hpf; Hyaline Casts Urine 0-4 /lpf; RBC Urine 0-2 /hpf (0-2)
[2023-10-22 08:33] LABS: Specific Gravity, Urine 1.089 (1.005-1.030)
--- NOTE | 2023-10-22 09:48 | P.HP_ITS ---
Providers/Chief Complaint 2 Admitting Physician: Uzair Winn MD, hospitalist Primary Care Provider: SWAPNIL Beaver Chief Complaint: n,v abd pain x3 days History of Present Illness Renata Riley is a 43 year old female that presents with nausea and vomiting for the last 3 days. No significant abdominal pain. Has not had much p.o. intake, no bowel movement in the last 3 days. [place] hot but no documented fever. No hematemesis, hematochezia. No ill contacts. States she has had multiple ER visits for nausea and vomiting. She has researched THC causing vomiting as she uses this every day and has been a little concerned. Does not typically have reflux on a chronic basis. Has had EGDs and colonoscopies before that were unrevealing. Last 1 was likely done 4 to 5 years ago or more. Typically has chronic loose stool. Review of Systems 2 General: Reports: 10 or more systems reviewed and unremarkable except in HPI and below Card: Denies: chest pain Resp: Denies: dyspnea GI: Reports: nausea and vomiting; Denies: abdominal pain or hematemesis Medications/Allergies Home Medications Medication Instructions Recorded Confirmed Last Taken Type escitalopram oxalate 10 mg tablet 10 mg PO DAILY 06/16/23 10/22/23 10/18/23 History levothyroxine 100 mcg tablet 100 mcg PO DAILY 06/16/23 10/22/23 10/18/23 History ondansetron 4 mg disintegrating 4 mg PO Q6H PRN nausea and 06/16/23 10/22/23 10/21/23 Rx tablet vomiting #14 tabs Allergies Allergy/AdvReac Type Severity Reaction Status Date / Time codeine Allergy Intermediate nausea Verified 09/30/23 18:32 promethazine [Phenergan] Allergy Intermediate ADR-Nausea Verified 09/30/23 18:32 metoclopramide [From Reglan] Allergy Unknown Verified 09/30/23 18:32 PFSH Acute 2 PFSH: Medical History (Updated 10/22/23 @ 09:53 by Uzair Winn MD) Depression with anxiety Hypothyroidism Surgical History (Updated 10/22/23 @ 09:50 by Uzair Winn MD) History of History of cholecystectomy Family History (Updated 10/22/23 @ 09:50 by Uzair Winn MD) Other Clotting disorder Social History (Updated 10/22/23 @ 09:50 by Uzair Winn MD) Smoking and tobacco/nicotine status: current some day tobacco/nicotine user Alcohol intake: current Alcohol intake frequency: 0-2 Drinks per Day Substance/Drug Use: current Substance/Drug use frequency: daily Substance/Drug use type: Marijuana Vitals/I&O/Wt Last Vital Signs Temp 98.0 F 10/22/23 06:14 Pulse 84 10/22/23 08:30 Resp 18 10/22/23 07:50 BP 121/80 10/22/23 08:30 Pulse Ox 98 10/22/23 08:30 10/21/23 10/22/23 10/22/23 22:59 06:59 14:59 Intake Total 1000 / 1000 Balance 1000 / 1000 Weight last 48 hrs Weight 72.575 kg Physical Exam 2 Narrative: General exam is a white female, reporting nausea. HEENT: Atraumatic normocephalic. Pupils equally round. Oropharynx clear but mucous membranes dry Neck is supple no lymphadenopathy thyromegaly Cardiovascular regular rate and rhythm without murmur Lungs clear no wheezing or crackles Abdomen is soft. Nontender. Positive bowel sounds. No obvious organomegaly exams deferred Extremities no sinus clubbing edema, cap refill brisk Skin no rash Neuro no focal deficits. Data 10/22/23 06:56 10/22/23 06:56 Other Labs: LFTs normal with exception of AST of 37 Calcium 9.4 and albumin 4.5 Lipase negative. Magnesium low at 1.6. hCG negative. Urinalysis negative. 1+ ketones is noted. High specific gravity is noted. CT abdomen pelvis which I reviewed is unrevealing. Possible colitis is listed under radiology reading. A&P Assessment and plan (1) Cannabinoid hyperemesis syndrome: I think it is likely the patient has cannabinoid hyperemesis syndrome. Differential diagnosis would also include peptic ulcer disease. Hydration Nausea control with Zofran, Ativan for breakthrough nausea Reevaluation tomorrow I do not think the patient has colitis based on symptomatology, no diarrhea, no elevation in white blood cell count. Will monitor for any fever. Protonix IV Avoid anti-inflammatories (2) Acute hypokalemia: Supplement potassium, recheck tomorrow (3) Hypomagnesemia: Supplement magnesium, recheck tomorrow (4) Dehydration: Hydration with normal saline at 150 cc an hour. (5) Tobacco dependency: Nicotine patch Encourage stopping smoking Plan History of hypothyroidism, check TSH. Multiple other medical problems as outlined by past medical history Full code Secondary family history of clotting disorder will provide SCDs and Lovenox for DVT prophylaxis Attestations 2 Medical Necessity Statement*: Will need less than 2 midnight stay for evaluation and treatment of dehydration, hyperemesis syndrome, electrolyte abnormality with need for supplementation. Diagnoses Cannabinoid hyperemesis syndrome R11.2; F12.90 Acute hypokalemia E87.6 Hypomagnesemia E83.42 Dehydration E86.0 Tobacco dependency F17.200 Time Spent (min) 49
[2023-10-22] MEDS: LORazepam 2 mg/mL INJ 1 mL 1 MG IVP (09:57)
--- NOTE | 2023-10-22 09:58 | PC.NURSE ---
Per Dr. Winn to cancel antibiotic orders ordered @[id number]
[2023-10-22] MEDS: sodium chloride 0.9% 1,000 ML 150 ML IV ×3 (10:08→23:03)
[2023-10-22] MEDS: pantoprazole 40 mg SDV IVP ×2 (10:08→23:03)
[2023-10-22] MEDS: magnesium sulfate premix 2 GM/50 ML PIGGYBACK IV (10:09)
[2023-10-22 10:27] LABS: Thyroid Stimulating Hormone 6.18 uIU/mL (0.27-4.20)
[2023-10-23 04:00] VITALS: BP 103/61; PULSE 62; RESP 17; TEMP 36.7; O2SAT 95
[2023-10-23 05:08] LABS: Basophils % 0.5 %; Eosinophils # 0.2 10^3/uL (0.0-0.8); Eosinophils % 2.1 %; Hematocrit 34.6 % (36-47); Lymphocytes # 2.9 10^3/uL (0.8-4.8); Lymphocytes % 35.3 %; Mean Corpuscular HGB Conc 33.2 g/dL (30-55); Mean Corpuscular Hemoglobin 30.4 pg (27-33); Mean Corpuscular Volume 91.5 fl (85-98); Monocytes # 0.7 10^3/uL (0.2-0.9); Monocytes % 8.1 %; Neutrophils # 4.36 10^3/uL (1.8-7.7); Neutrophils % 53.8 %; Nucleated Red Blood Cells % 0 %; Platelet Count 196 10^3/cmm (157-399); Red Blood Count 3.78 10^6/uL (3.85-5.65); Red Cell Distribution Width 13.5 % (12.1-15.1); White Blood Count 8.11 10^3/uL (3.29-11.43)
[2023-10-23] MEDS: sodium chloride 0.9% 1,000 ML 150 ML IV (05:36)
[2023-10-23 05:39] LABS: Alanine Aminotransferase 19 U/L (0-33); Albumin Level 3.2 g/dL (3.5-5.2); Alkaline Phosphatase 45 U/L (35-105); Anion Gap 13.3 (5-19); Aspartate Amino Transferase 18 U/L (0-32); Blood Urea Nitrogen 5 mg/dL (6-20); Calcium 7.2 mg/dL (8.5-10.5); Carbon Dioxide 22 mmol/L (22-29); Chloride 109 mmol/L (98-107); Creatinine Clr Calc Pharmacy 154.2516; Globulin 2.1 g/dL (1.3-4.6); Glucose 88 mg/dL (65-115); Magnesium 1.8 mg/dL (1.7-2.3); Osmolality Calculated 289 mOsm/kg (285-295); Potassium 3.3 mmol/L (3.5-5.1); Sodium 141 mmol/L (136-145); Total Bilirubin 0.3 mg/dL (0.15-1.2); Total Protein 5.3 g/dL (6.6-8.7)
--- NOTE | 2023-10-23 07:20 | P.DS_ITS ---
Discharge Providers Date of Admission: 10/22/23 10:44 Date of Discharge: October 23, 2023 Attending Provider at Admission: Uzair Winn MD Attending Provider at Discharge: Benjamin Bonilla MD Primary Care Provider: SWAPNIL Beaver Diagnoses at Discharge Discharge Diagnosis (1) Cannabinoid hyperemesis syndrome: Status: Acute (2) Acute hypokalemia: Status: Acute (3) Hypomagnesemia: Status: Acute (4) Dehydration: Status: Acute (5) Tobacco dependency: Status: Acute Reason for Visit Reason for Visit: n,v abd pain x3 days Hospital Course Hospital Course 43-year-old female who was admitted to the hospital for management evaluation of intractable nausea vomiting. Patient has been experiencing this symptom for last 3 days before admission in the hospital. Patient has been using recreational drug marijuana previous endoscopies were unremarkable for the p atient. She did not experience any recurrence of symptoms during hospitalization, she was given IV fluids electrolytes were replenished. She is being discharged with stable hemodynamics with supplementation of potassium magnesium and prescription of antinausea medication. CT abdomen pelvis unremarkable Physical Exam Narrative: Awake and alert No active nausea or vomiting pleasant cooperative nonfocal neuroexam Discharge Data Studies Completed and Pending Completed Studies During Hospitalization Category Date Time Status CT abdomen pelvis w con* [id number] Stat Cat Scan 10/22/23 07:35 Completed Radiology Impressions Abdomen/Pelvis CT 10/22/23 07:35 IMPRESSION: 1. Findings of which can be seen in mild colitis in the correct clinical setting. 2. Otherwise, incidental findings as above. Laboratory Results WBC 8.11 10^3/uL (3.29-11.43) 10/23/23 03:56 RBC 3.78 10^6/uL (3.85-5.65) L 10/23/23 03:56 Hgb 11.50 g/dL (11.27-16.99) 10/23/23 03:56 Hct 34.6 % (36-47) L 10/23/23 03:56 MCV 91.5 fl (85-98) 10/23/23 03:56 MCH 30.4 pg (27-33) 10/23/23 03:56 MCHC 33.2 g/dL (30-55) D 10/23/23 03:56 RDW 13.5 % (12.1-15.1) 10/23/23 03:56 Plt Count 196 10^3/cmm (157-399) 10/23/23 03:56 MPV 10.0 fL (7.4-10.4) 10/23/23 03:56 Neut % (Auto) 53.8 % 10/23/23 03:56 Lymph % (Auto) 35.3 % 10/23/23 03:56 [place] % (Auto) 8.1 % 10/23/23 03:56 Eos % (Auto) 2.1 % 10/23/23 03:56 Baso % (Auto) 0.5 % 10/23/23 03:56 Neut # (Auto) 4.36 10^3/uL (1.8-7.7) 10/23/23 03:56 Lymph # (Auto) 2.9 10^3/uL (0.8-4.8) 10/23/23 03:56 [place] # (Auto) 0.7 10^3/uL (0.2-0.9) 10/23/23 03:56 Eos # (Auto) 0.2 10^3/uL (0.0-0.8) 10/23/23 03:56 Baso # (Auto) 0.0 10^3/uL (0.0-0.1) 10/23/23 03:56 Nucleated RBC % (auto) 0 % 10/23/23 03:56 Nucleated RBCs # 0.0 /100WBC 10/23/23 03:56 Sodium 141 mmol/L (136-145) 10/23/23 03:56 Potassium 3.3 mmol/L (3.5-5.1) L 10/23/23 03:56 Chloride 109 mmol/L (98-107) H 10/23/23 03:56 Carbon Dioxide 22 mmol/L (22-29) 10/23/23 03:56 Anion Gap 13.3 (5-19) 10/23/23 03:56 BUN 5 mg/dL (6-20) L 10/23/23 03:56 Creatinine 0.5 mg/dL (0.5-0.9) 10/23/23 03:56 GFR Calculation 136.0 mL/min (90-130) H 10/23/23 03:56 Glucose 88 mg/dL (65-115) 10/23/23 03:56 Calculated Osmolality 289 mOsm/kg (285-295) 10/23/23 03:56 Calcium 7.2 mg/dL (8.5-10.5) L 10/23/23 03:56 Magnesium 1.8 mg/dL (1.7-2.3) 10/23/23 03:56 Total Bilirubin 0.3 mg/dL (0.15-1.2) 10/23/23 03:56 AST 18 U/L (0-32) 10/23/23 03:56 ALT 19 U/L (0-33) 10/23/23 03:56 Alkaline Phosphatase 45 U/L (35-105) 10/23/23 03:56 Total Protein 5.3 g/dL (6.6-8.7) L D 10/23/23 03:56 Albumin 3.2 g/dL (3.5-5.2) L 10/23/23 03:56 Globulin 2.1 g/dL (1.3-4.6) 10/23/23 03:56 Lipase 30 U/L (13-60) 10/22/23 06:56 TSH 6.18 uIU/mL (0.27-4.20) H 10/22/23 06:56 HCG, Qual Negative (Negative) 10/22/23 06:56 Urine Color Yellow (Yellow) 10/22/23 08:12 Urine Appearance Clear (CLEAR) 10/22/23 08:12 Urine pH 7.5 (5-7) 10/22/23 08:12 Ur Specific [place] 1.089 (1.005-1.030) H 10/22/23 08:12 Urine Protein Trace (Negative) A 10/22/23 08:12 Urine Glucose (UA) Negative (Normal) 10/22/23 08:12 Urine Ketones 1+ (Negative) H 10/22/23 08:12 Urine Blood Negative (Negative) 10/22/23 08:12 Urine Nitrate Negative (Negative) 10/22/23 08:12 Urine Bilirubin Negative (Negative) 10/22/23 08:12 Urine Urobilinogen 1.0 mg/dL (Negative) 10/22/23 08:12 Ur Leukocyte Esterase Negative (Negative) 10/22/23 08:12 Urine RBC 0-2 /hpf (0-2) 10/22/23 08:12 Urine WBC 6-10 /hpf (0-5) 10/22/23 08:12 Ur Squamous Epith Cells 11-20 /hpf (0-5) 10/22/23 08:12 Amorphous Sediment Not Reportable 10/22/23 08:12 Urine Bacteria Trace /hpf (NONE) 10/22/23 08:12 Hyaline Casts 0-4 /lpf H 10/22/23 08:12 Vitals Last Vital Signs Temp 98.1 F 10/23/23 04:00 Pulse 62 10/23/23 04:00 Resp 17 10/23/23 04:00 BP 103/61 10/23/23 04:00 Pulse Ox 95 10/23/23 04:00 O2 Del Method Room Air 10/23/23 04:00 Discharge Plan Discharge Patient Disposition: Home Condition: Stable Prescriptions: New magnesium 200 mg tablet 200 mg PO DAILY Qty: 7 0RF ondansetron HCl 4 mg tablet 4 mg PO DAILY Qty: 7 0RF potassium chloride 10 mEq tablet extended release 10 meq PO DAILY Qty: 7 0RF Continued levothyroxine 100 mcg tablet 100 mcg PO DAILY escitalopram oxalate 10 mg tablet 10 mg PO DAILY ondansetron 4 mg tablet,disintegrating 4 mg PO Q6H PRN (Reason: nausea and vomiting) Qty: 14 0RF Discharge Orders: Discharge Order (Routine); Ordered 10/23/23 Ordered By: Benjamin Bonilla Referrals: David,Josee, OPERATIONS EXPERT [Primary Care Provider] - Patient Instructions: Opioid Safety, Pain Management Discharge Attestations Time Spent in Discharge Care*: less than 30 min Quality Metrics Clinical Quality Measures [ No reported AMI, CVA or VTE this stay] Coding Level of Care Code Acute Code for Chg Fwd Diagnoses Cannabinoid hyperemesis syndrome R11.2; F12.90 Acute hypokalemia E87.6 Hypomagnesemia E83.42 Dehydration E86.0 Tobacco dependency F17.200
[2023-10-23 07:39] VITALS: BP 93/59; PULSE 67; RESP 16; TEMP 36.8; O2SAT 97
== END 2023-10-23 08:48 | disposition home or self-care (01) ==
LOC: ER 09:36 → MEDSURG 10:44
PROVIDERS: Admitting Provider Internal Medicine; Emergency Provider Family Medicine; PCP Nurse Practitioner Family; Visit Provider Internal Medicine
DX: R11.2 Nausea with vomiting, unspecified (principal); F12.90 Cannabis use, unspecified, uncomplicated; E87.6 Hypokalemia; E83.42 Hypomagnesemia; E86.0 Dehydration; F17.200 Nicotine dependence, unspecified, uncomplicated; E03.9 Hypothyroidism, unspecified; F32.A Depression, unspecified; F41.9 Anxiety disorder, unspecified
CPT/HCPCS: 36415; 74177; 80053; 81003; 81015; 83690; 83735; 84443; 84703; 85025; 96365; 96366; 96367; 96375; 99285; G0378; J1630; J2060; J2470; J3475; J7030; Q9967

== ENCOUNTER 2023-11-16 11:40 | Outpatient (CLI) | payer MEDICAID, SELFPAY ==
--- NOTE | 2023-11-16 11:43 | MR_ITS ---
WS: [id number] MRI RIGHT KNEE NONCONTRAST TECHNIQUE: Axial PD, coronal PD fat sat, coronal PD, sagittal PD, and sagittal PD fat-sat images obta ined. CLINICAL INFORMATION: PAIN IN RIGHT KNEE COMPARISON: None. FINDINGS: Distal quadriceps and patella tendons are intact. Normal ACL and PCL. Small amount of prepatellar and infrapatellar soft tissue edema. Small lobulated popliteal cyst measuring 4.6 x 0.9 cm. Mild chronic thinning of the medial meniscus. No acute appearing meniscal tears. Mild chondromalacia patella. Medial and lateral patellar retinaculum appear intact. Normal lateral co llateral ligament. Irregularity with fluid and edema along the proximal medial collateral ligament co mpatible with grade 2 injury. Distal MCL appears intact. Fluid and edema along the superficial and de ep fibers with irregularity of the proximal ligament. MR/MR knee RT wo con* [id number] IMPRESSION: 1. Grade 2 injury of the medial collateral ligament with fluid and edema along the superficial and deep fibers worse proximally. Distal MCL appears intact. 2. ACL and PCL appear intact. 3. Chronic thinning of the medial meniscus. Mild peripheral extrusion of the m edial meniscus. No acute appearing meniscal tears. 4. Mild chondromalacia patella. 5. Small lobulated popliteal cyst described above. Outbridge grading: grade II: blister-like swelling/fraying of articular cartila ge extending to surface
== END 2023-11-16 11:41 | disposition home or self-care (01) ==
LOC: RAD 11:40
PROVIDERS: PCP Nurse Practitioner Family; Visit Provider Family Medicine
DX: S83.411A Sprain of medial collateral ligament of right knee, initial encounter (principal); M23.305 Other meniscus derangements, unspecified medial meniscus, unspecified knee; M71.21 Synovial cyst of popliteal space [Baker], right knee; W19.XXXA Unspecified fall, initial encounter
CPT/HCPCS: 73721

== ENCOUNTER 2023-12-21 13:29 | Emergency (ER) | payer MEDICAID, SELFPAY ==
[2023-12-21] VITALS (7 sets, daily range): BP systolic 126–154; BP diastolic 80–101; PULSE 56–75; RESP 16–22; TEMP 36.3; O2SAT 97–100; BMI 25.0
[2023-12-21 16:37] LABS: Basophils # 0.1 10^3/uL (0.0-0.1); Basophils % 0.4 %; Hematocrit 46.6 % (36-47); Lymphocytes # 0.9 10^3/uL (0.8-4.8); Lymphocytes % 7.2 %; Mean Corpuscular HGB Conc 33.9 g/dL (30-55); Mean Corpuscular Hemoglobin 30.6 pg (27-33); Mean Corpuscular Volume 90.1 fl (85-98); Mean Platelet Volume 9.7 fL (7.4-10.4); Monocytes # 0.5 10^3/uL (0.2-0.9); Monocytes % 3.7 %; Neutrophils # 10.75 10^3/uL (1.8-7.7); Neutrophils % 88.3 %; Nucleated Red Blood Cells % 0 %; Platelet Count 337 10^3/cmm (157-399); Red Blood Count 5.17 10^6/uL (3.85-5.65); Red Cell Distribution Width 13.6 % (12.1-15.1); White Blood Count 12.18 10^3/uL (3.29-11.43)
[2023-12-21 16:45] LABS: Alanine Aminotransferase 15 U/L (0-33); Albumin Level 4.6 g/dL (3.5-5.2); Alkaline Phosphatase 75 U/L (35-105); Aspartate Amino Transferase 17 U/L (0-32); Blood Urea Nitrogen 11 mg/dL (6-20); Calcium 9.6 mg/dL (8.5-10.5); Carbon Dioxide 18 mmol/L (22-29); Chloride 102 mmol/L (98-107); Creatinine Clr Calc Pharmacy 110.1797; Globulin 3.5 g/dL (1.3-4.6); Glomerular Filtration Rate 92.2 mL/min (90-130); Glucose 140 mg/dL (65-115); Lipase 26 U/L (13-60); Osmolality Calculated 290 mOsm/kg (285-295); Sodium 139 mmol/L (136-145); Total Bilirubin 0.4 mg/dL (0.15-1.2); Total Protein 8.1 g/dL (6.6-8.7)
[2023-12-21 16:47] LABS: HCG, Serum Qual Negative (Negative)
[2023-12-21 16:49] LABS: Anion Gap 22.7 (5-19); Potassium 3.7 mmol/L (3.5-5.1)
[2023-12-21 17:18] LABS: Bilirubin Urine Negative (Negative); Blood Urine Trace (Negative); Glucose Urine UA Negative (Normal); Ketones Urine 4+ (Negative); Leukocyte Esterase Urine Negative (Negative); Nitrate Urine Negative (Negative); Protein Urine 1+ (Negative); Urine Appearance Clear (CLEAR); Urine Color Yellow (Yellow)
[2023-12-21] MEDS: ondansetron 2 mg/ML SDV 2 mL 4 MG IVP ×3 (17:21→20:57)
[2023-12-21] MEDS: sodium chloride 0.9% 1,000 ML 999 ML IV ×2 (17:21→18:39)
[2023-12-21 17:24] LABS: Add Urine Microscopic? YES; Bacteria Urine None Seen /hpf; Hyaline Casts Urine 2.05 /lpf; Squamous Epithelial Cell Urine 0-5 /hpf (0-5); WBC Urine 0-5 /hpf (0-5)
[2023-12-21 17:27] LABS: Add Urine Culture? No; Specific Gravity, Urine 1.034 (1.005-1.030)
--- NOTE | 2023-12-21 17:30 | CTR_ITS ---
PROCEDURE INFORMATION: Exam: CT Abdomen And Pelvis With Contrast Exam date and time: 12/21/2023 7:30 PM Age: 43 years old Clinical indication: Abdominal pain; Additional info: Worsening abd pain, now in llq TECHNIQUE: Imaging protocol: Computed tomography of the abdomen and pelvis with contrast. Radiation optimization: All CT scans at this facility use at least one of these dose optimization techniques: automated exposure control; mA and/or kV adjustment per patient size (includes targeted exams where dose is matched to clinical indication); or iterative reconstruction. Contrast material: OMNI 350; Contrast volume: 100 ml; Contrast route: INTRAVENOUS (IV); COMPARISON: CT abdomen pelvis w con* [id number] 10/22/2023 7:42 AM RADIATION DOSE METRICS: Total DLP (mGy-cm): 455 FINDINGS: Lungs: Lung bases are clear. Liver: Liver is mildly enlarged. No masses detected. Gallbladder and biliary ducts: Gallbladder has been removed. Bile ducts are not appreciably dilated. Pancreas: Unremarkable. Main pancreatic duct is not significantly dilated. Spleen: There are scattered calcified granulomas within the spleen, longstanding, otherwise spleen is unremarkable. Adrenal glands: Normal. No mass. Kidneys and ureters: Kidneys are unremarkable. No calculi or hydronephrosis detected. Stomach and bowel: Majority of the large bowel is collapsed limiting assessment. However portions of the colonic wall appear mildly thickened with preserved pericolonic fat planes. Findings are nonspecific and may be secondary to mild colitis. This should be correlated clinically. Remainder the GI tract is unremarkable. Appendix: No evidence of appendicitis. Intraperitoneal space: Unremarkable. No free air. No significant fluid collection. Vasculature: Unremarkable. No abdominal aortic aneurysm. Lymph nodes: Unremarkable. No enlarged lymph nodes. Urinary bladder: Unremarkable as visualized. Reproductive: Unremarkable as visualized. Bones/joints: Unremarkable. No acute fracture. Soft tissues: Unremarkable. CT/CT abdomen pelvis w con* [id number] IMPRESSION: Nonspecific findings inconclusive for mild colitis. Please correlate clinically.
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
--- NOTE | 2023-12-21 17:59 | PC.NURSE ---
pt states I threw up so I hard I pulled put my IV IV noted to be dislodged. US IV notified. Pt is also taking pictures of her IV site.
[2023-12-21] MEDS: LORazepam 2 mg/mL INJ 1 mL 1 MG IVP (18:20)
[2023-12-21] MEDS: iohexol 350 mg/mL 500 mL Btl (per mL) IV (19:35)
[2023-12-21] MEDS: LORazepam 1 mg Tablet PO (20:57)
== END 2023-12-21 21:04 | disposition home or self-care (01) ==
PROVIDERS: Family Medicine; Emergency Provider Physician Assistant; PCP Nurse Practitioner Family
DX: R11.2 Nausea with vomiting, unspecified (principal); F12.90 Cannabis use, unspecified, uncomplicated; Z72.0 Tobacco use
CPT/HCPCS: 74177; 80053; 81001; 83690; 84703; 85025; 96361; 96374; 96375; 96376; 99285; J2060; J2405; J7030

== ENCOUNTER 2025-03-02 11:43 | Outpatient (CLI) | payer MEDICAID, SELFPAY ==
--- NOTE | 2025-03-02 11:48 | MM_ITS ---
WS: [id number] BILATERAL 3D TOMOSYNTHESIS DIGITAL SCREENING MAMMOGRAPHY WITH CAD CLINICAL INFORMATION: SCREENING HISTORY: Screening mammogram. No current complaints. COMPARISON: 2021 TECHNIQUE: Bilateral CC and MLO views. FINDINGS: Scattered fibroglandular densities bilaterally. New partially obscured large ovoid RIGHT breast lesion upper outer RIGHT breast measuring 1.8 x 1.2 cm. This is new since 2021. Recommend further evaluation with RIGHT breast diagnostic mammography and ultrasound. A few new calcifications in this area. Unremarkable LEFT breast MM/MM scr BI tomosynthesis [id number] IMPRESSION: DENSITY:There are scattered areas of fibroglandular density. BI-RADS: 0 - Incomplete: Need additional imaging evaluation. FOLLOW UP: Need Additional Imaging Recommend further evaluation with RIGHT breast diagnostic mammography and ultra sound.
== END 2025-03-02 11:44 | disposition home or self-care (01) ==
PROVIDERS: PCP Nurse Practitioner Family; Visit Provider Nurse Practitioner Family
DX: Z12.31 Encounter for screening mammogram for malignant neoplasm of breast (principal); R92.323 Mammographic fibroglandular density, bilateral breasts; R92.1 Mammographic calcification found on diagnostic imaging of breast; N63.11 Unspecified lump in the right breast, upper outer quadrant
CPT/HCPCS: 77063; 77067